=== PATIENT | male | born 1955 | race Hispanic/Latino ===

== ENCOUNTER 2019-08-24 12:52 | Outpatient (CLI) | payer OTHER ==
--- NOTE | 2019-08-24 13:23 | ULT ---
US Carotid Doppler STANDARD History: Transient ischemic attack Comparison: None. Findings: Real-time grayscale, color and spectral analysis of the extracranial carotid and vertebral arteries was performed. Antegrade flow both vertebral arteries. No elevated peak systolic velocities within the internal martinez tid arteries. Minimal atherosclerotic plaque. Impression: No hemodynamically significant stenosis.
== END 2019-08-24 12:53 | disposition home or self-care (01) ==
LOC: BICULT 12:52
PROVIDERS: ATTEND Psychiatry & Neurology Neurology
DX: G45.9 Transient cerebral ischemic attack, unspecified (principal)
CPT/HCPCS: 93880

== ENCOUNTER 2020-09-05 16:01 | Inpatient (IN) | payer OTHER ==
[~2020-09-05 16:01] MED LIST: Iopamidol-370 76% 500 ML 1 ML ONE
[2020-09-05] MEDS ORDERED: Acetaminophen 500 MG TAB ONE (17:35)
[2020-09-05] MEDS ORDERED: Aspirin 325 MG TAB ONE (18:11)
[2020-09-05 18:18] LABS: #Basophils 0.1 thou/uL (0.0-0.2); #Eosinphils 0.1 thou/uL (0.0-0.7); #Lymphocytes 2.4 thou/uL (1.20-3.40); #Monocytes 0.9 thou/uL (0.11-0.59); #Neutrophils 4.7 thou/uL (1.40-6.50); %Basophils 0.7 % (0.0-1.0); %Eosinophils 0.9 % (0.0-10.0); %Lymphocytes 29.5 % (21.0-51.0); %Monocytes 11.4 % (0.0-10.0); %Neutrophils 57.4 % (42.0-75.0); Hemoglobin 16.3 g/dL (14.0-18.0); Mean Corpuscular HGB CONC 33.9 g/dL (32.0-36.0); Mean Corpuscular Volume 88.5 fL (78.0-98.0); Mean Platelet Volume 10.2 fL (7.4-10.4); Platelet Count 208 thou/uL (130-400); RBC Distribution Width 11.8 % (11.5-14.5); Red Blood Cell (RBC) Count 5.42 mill/uL (4.70-6.10); White Blood Cell (WBC) Count 8.2 thou/uL (4.8-10.8)
[2020-09-05 18:46] LABS: ALT (SGPT) 97 U/L (8-55); AST (SGOT) 86 U/L (5-34); Alkaline Phosphatase 69 U/L (40-110); Anion Gap 14 mmol/L (10-20); BUN (Urea Nitrogen) 19 mg/dL (8.4-25.7); Bilirubin, Total 1.1 mg/dL (0.2-1.2); Calc. Creatinine Clearance 0 mL/min (70-130); Calcium 9.9 mg/dL (7.8-10.44); Carbon Dioxide 23 mmol/L (23-31); Chloride 104 mmol/L (98-107); Globulin 4.4 g/dL (2.4-3.5); Glucose 119 mg/dL (80-115); Magnesium 1.9 mg/dL (1.6-2.6); Potassium 4.2 mmol/L (3.5-5.1); Protein, Total 8.4 g/dL (5.8-8.1); Sodium 137 mmol/L (136-145)
[2020-09-05] MEDS ORDERED: Sodium Chloride 0.9% 1,000 ML IV SCH ×2 (21:15→21:48)
[2020-09-05] MEDS ORDERED: Acetaminophen 325 MG TAB PO PRN (21:15)
[2020-09-06 04:06] VITALS: BMI 24.2
[2020-09-06 05:15] LABS: Cardiac Risk 5.2 (Less than 4.5)
[2020-09-06] MEDS: Enoxaparin Sodium 40 MG/0.4 ML SYRINGE SC SCH (09:00)
[2020-09-06] MEDS: Aspirin 81 mg Enteric Coated Tablet PO SCH (09:00)
[2020-09-06] MEDS ORDERED: Magnevist 469MG/ML 20 ML VIAL ONE (10:40)
[2020-09-06] MEDS ORDERED: Atorvastatin Calcium 40 MG TAB PO SCH (21:00)
[2020-09-07] MEDS: Aspirin 81 mg Enteric Coated Tablet PO SCH (09:00)
[2020-09-07] MEDS: Enoxaparin Sodium 40 MG/0.4 ML SYRINGE SC SCH (09:00)
[2020-09-07 15:49] VITALS: BP 163/91; TEMP 98.3
== END 2020-09-07 16:30 | disposition home or self-care (01) | DRG 65 ==
LOC: ERS 16:01 → 2SE 19:40 → INTOOBSV 19:40 → OBSVTOIN 09-06 16:51
PROVIDERS: ADMIT Internal Medicine; ATTEND Family Medicine
DX: I63.511 Cerebral infarction due to unspecified occlusion or stenosis of right middle cerebral artery (principal); G81.92 Hemiplegia, unspecified affecting left dominant side; I10 Essential (primary) hypertension; F41.9 Anxiety disorder, unspecified; G47.00 Insomnia, unspecified; I65.21 Occlusion and stenosis of right carotid artery; M25.551 Pain in right hip; I65.01 Occlusion and stenosis of right vertebral artery; F17.210 Nicotine dependence, cigarettes, uncomplicated; F32.9 Major depressive disorder, single episode, unspecified; R29.701 NIHSS score 1; F10.10 Alcohol abuse, uncomplicated; Z79.899 Other long term (current) drug therapy
CPT/HCPCS: 36415; 70450; 70496; 70498; 70553; 71045; 72141; 72148; 80053; 80061; 83735; 84484; 85025; 93005; 93306; 96372; A9579; G0378; J1650; Q9967

== ENCOUNTER 2022-10-22 06:49 | Inpatient (IN) | payer MEDICARE, MEDICAID ==
[2022-10-22] MEDS ORDERED: Ondansetron PF 4 MG/2 ML Vial ONE (07:22)
[2022-10-22] MEDS ORDERED: Morphine 4 MG/ML VIAL ONE (07:22)
[2022-10-22] MEDS ORDERED: Nitroglycerin 2% Ointment 1 INCH/1 GM Packet ONE (07:22)
[2022-10-22 07:55] LABS: #Basophils 0.1 thou/uL (0.0-0.2); #Monocytes 0.7 thou/uL (0.11-0.59); #Neutrophils 4.7 thou/uL (1.40-6.50); %Basophils 0.7 % (0.0-1.0); %Eosinophils 0.4 % (0.0-10.0); %Lymphocytes 20.3 % (21.0-51.0); %Monocytes 10.5 % (0.0-10.0); %Neutrophils 67.7 % (42.0-75.0); Hematocrit 35.8 % (42.0-52.0); Hemoglobin 11.3 g/dL (14.0-18.0); Mean Corpuscular HGB CONC 31.6 g/dL (32.0-36.0); Mean Corpuscular Hemoglobin 23.8 pg (27.0-31.0); Mean Corpuscular Volume 75.4 fl (78.0-98.0); Platelet Count 194 10x3/uL (130-400); RBC Distribution Width 17.1 % (11.5-14.5); Red Blood Cell (RBC) Count 4.75 mill/uL (4.70-6.10); White Blood Cell (WBC) Count 6.9 10x3/uL (4.8-10.8)
[2022-10-22 08:17] LABS: ALT (SGPT) 132 U/L (8-55); AST (SGOT) 154 U/L (5-34); Albumin 4.3 g/dL (3.4-4.8); Alkaline Phosphatase 63 U/L (40-110); Anion Gap 13 mmol/L (10-20); BUN (Urea Nitrogen) 12 mg/dL (8.4-25.7); Bilirubin, Total 0.9 mg/dL (0.2-1.2); Calc. Creatinine Clearance 0 mL/min (70-130); Calcium 9.4 mg/dL (7.8-10.44); Carbon Dioxide 26 mmol/L (23-31); Chloride 96 mmol/L (98-107); Estimated GFR 73; Globulin 3.6 g/dL (2.4-3.5); Glucose 174 mg/dL (80-115); Lipase 46 U/L (8-78); Potassium 4.2 mmol/L (3.5-5.1); Protein, Total 7.9 g/dL (5.8-8.1); Sodium 131 mmol/L (136-145)
[2022-10-22 08:28] LABS: Troponin I 0.012 ng/mL (< 0.028)
[2022-10-22] MEDS ORDERED: Ondansetron ODT 4 MG TAB PO PRN (10:56)
[2022-10-22] MEDS ORDERED: Acetaminophen 325 MG TAB PO PRN ×2 (10:56→11:00)
[2022-10-22] MEDS ORDERED: Ondansetron ODT 4 MG TAB SL PRN (11:00)
[2022-10-22] MEDS ORDERED: Ondansetron PF 4 MG/2 ML Vial IVP PRN (11:00)
[2022-10-22] MEDS ORDERED: Amlodipine 10 MG TAB PO SCH (11:00)
[2022-10-22] MEDS ORDERED: Dextrose 5% in Water 1,000 ML IV PRN (11:06)
[2022-10-22] MEDS ORDERED: Dextrose 50% Abboject 50 ML SYRINGE SLOW IVP PRN (11:06)
[2022-10-22] MEDS ORDERED: Insulin Regular 300 UNITS/3 ML VIAL SC PRN (11:06)
[2022-10-22] MEDS ORDERED: Glucagon 1 MG/ML KIT IM PRN (11:06)
[2022-10-22 11:20] LABS: CellaVision Operator ID LAB.GE; Microcytosis SLIGHT = 6-15 cells HPF (0-5); Platelet Adequacy Comment Platelets Normal; Polychromasia SLIGHT = 2-3 cells HPF (0-2)
[2022-10-22 11:46] LABS: Hemoglobin A1c 6.3 % (4.0-6.0)
[2022-10-22 11:57] LABS: Iron 50 ug/dL (65-175); Iron Binding Capacity, Total 574 mcg/dL (261-462)
[2022-10-22 12:03] LABS: Troponin I 0.026 ng/mL (< 0.028)
[2022-10-22 12:24] LABS: Ferritin 16.59 ng/mL (22-322)
[2022-10-22] MEDS ORDERED: Aspirin Chewable 81 MG TAB PO SCH (12:45)
[2022-10-22 14:44] VITALS: BMI 25.1
[2022-10-22 15:00] LABS: Troponin I 0.015 ng/mL (< 0.028)
[2022-10-22] MEDS: Ferrous Sulfate 325 MG TAB PO SCH (16:48)
[2022-10-22] MEDS: Nitroglycerin 2% Ointment 1 INCH/1 GM Packet TOP SCH ×2 (16:51→22:59)
[2022-10-22] MEDS: Famotidine 20 MG TAB PO SCH (20:16)
[2022-10-22] MEDS: Atorvastatin Calcium 40 MG TAB PO SCH (20:16)
[2022-10-23 04:50] LABS: Cardiac Risk 3.6 (Less than 4.5)
[2022-10-23] MEDS ORDERED: ADENOSINE 60 MG/20 ML SDV ONE (08:45)
[2022-10-23] MEDS: Nitroglycerin 2% Ointment 1 INCH/1 GM Packet TOP SCH ×2 (09:33→16:39)
[2022-10-23] MEDS: Aspirin Chewable 81 MG TAB PO SCH (09:34)
[2022-10-23] MEDS: Amlodipine 10 MG TAB PO SCH (09:34)
[2022-10-23] MEDS: Ferrous Sulfate 325 MG TAB PO SCH ×2 (09:34→16:39)
[2022-10-23] MEDS: Famotidine 20 MG TAB PO SCH (09:34)
[2022-10-23] MEDS: Atorvastatin Calcium 40 MG TAB PO SCH (20:10)
[2022-10-24] MEDS: Nitroglycerin 2% Ointment 1 INCH/1 GM Packet TOP SCH ×5 (00:17→23:58)
[2022-10-24 06:09] LABS: Hematocrit 33.6 % (42.0-52.0); Hemoglobin 10.3 g/dL (14.0-18.0); Mean Corpuscular HGB CONC 30.7 g/dL (32.0-36.0); Mean Corpuscular Hemoglobin 23.6 pg (27.0-31.0); Mean Corpuscular Volume 77.1 fl (78.0-98.0); Platelet Count 160 10x3/uL (130-400); RBC Distribution Width 16.9 % (11.5-14.5); Red Blood Cell (RBC) Count 4.36 mill/uL (4.70-6.10); White Blood Cell (WBC) Count 5.5 10x3/uL (4.8-10.8)
[2022-10-24 06:29] LABS: ALT (SGPT) 118 U/L (8-55); AST (SGOT) 123 U/L (5-34); Albumin 3.9 g/dL (3.4-4.8); Alkaline Phosphatase 57 U/L (40-110); Anion Gap 10 mmol/L (10-20); BUN (Urea Nitrogen) 20 mg/dL (8.4-25.7); Bilirubin, Direct 0.3 mg/dL (0.1-0.3); Bilirubin, Total 0.5 mg/dL (0.2-1.2); Calc. Creatinine Clearance 61 mL/min (70-130); Calcium 9.3 mg/dL (7.8-10.44); Carbon Dioxide 28 mmol/L (23-31); Chloride 103 mmol/L (98-107); Estimated GFR 57; Glucose 125 mg/dL (80-115); Potassium 4.1 mmol/L (3.5-5.1); Protein, Total 7.2 g/dL (5.8-8.1); Sodium 137 mmol/L (136-145)
[2022-10-24] MEDS: Amlodipine 10 MG TAB PO SCH (08:30)
[2022-10-24] MEDS: Aspirin Chewable 81 MG TAB PO SCH (08:30)
[2022-10-24] MEDS: Ferrous Sulfate 325 MG TAB PO SCH ×2 (08:30→17:13)
[2022-10-24] MEDS: Atorvastatin Calcium 40 MG TAB PO SCH (21:09)
[2022-10-25 05:18] LABS: #Eosinphils 0.2 thou/uL (0.0-0.7); #Monocytes 0.8 thou/uL (0.11-0.59); #Neutrophils 2.3 thou/uL (1.40-6.50); %Basophils 0.7 % (0.0-1.0); %Eosinophils 4.1 % (0.0-10.0); %Lymphocytes 40.4 % (21.0-51.0); %Monocytes 13.8 % (0.0-10.0); %Neutrophils 40.8 % (42.0-75.0); Hematocrit 34.6 % (42.0-52.0); Hemoglobin 10.7 g/dL (14.0-18.0); Mean Corpuscular HGB CONC 30.9 g/dL (32.0-36.0); Mean Corpuscular Hemoglobin 24.1 pg (27.0-31.0); Mean Corpuscular Volume 77.9 fl (78.0-98.0); Mean Platelet Volume 13.1 fL (7.4-10.4); Platelet Count 168 10x3/uL (130-400); RBC Distribution Width 17.1 % (11.5-14.5); Red Blood Cell (RBC) Count 4.44 mill/uL (4.70-6.10); White Blood Cell (WBC) Count 5.6 10x3/uL (4.8-10.8)
[2022-10-25 05:36] LABS: Anion Gap 14 mmol/L (10-20); BUN (Urea Nitrogen) 20 mg/dL (8.4-25.7); Calc. Creatinine Clearance 60 mL/min (70-130); Calcium 9.8 mg/dL (7.8-10.44); Carbon Dioxide 27 mmol/L (23-31); Chloride 101 mmol/L (98-107); Estimated GFR 56; Glucose 130 mg/dL (80-115); Potassium 4.7 mmol/L (3.5-5.1); Sodium 137 mmol/L (136-145)
[2022-10-25] MEDS: Amlodipine 10 MG TAB PO SCH (08:42)
[2022-10-25] MEDS: Nitroglycerin 2% Ointment 1 INCH/1 GM Packet TOP SCH ×3 (08:43→20:58)
[2022-10-25] MEDS: Aspirin Chewable 81 MG TAB PO SCH (08:43)
[2022-10-25] MEDS: Ferrous Sulfate 325 MG TAB PO SCH ×2 (08:43→17:32)
[2022-10-25] MEDS ORDERED: Communication Order-Pharmacy FS SCH (13:00)
[2022-10-25] MEDS: Sodium Chloride 0.9% 1,000 ML IV SCH (18:08)
[2022-10-25] MEDS: Atorvastatin Calcium 40 MG TAB PO SCH (20:58)
[2022-10-26] MEDS: Nitroglycerin 2% Ointment 1 INCH/1 GM Packet TOP SCH ×3 (05:10→20:40)
[2022-10-26] MEDS: Sodium Chloride 0.9% 1,000 ML IV SCH ×2 (05:11→11:48)
[2022-10-26] MEDS: Ferrous Sulfate 325 MG TAB PO SCH ×2 (05:27→18:07)
[2022-10-26] MEDS: Amlodipine 10 MG TAB PO SCH (05:27)
[2022-10-26] MEDS: Aspirin Chewable 81 MG TAB PO SCH (05:27)
[2022-10-26 05:35] LABS: #Basophils 0.1 thou/uL (0.0-0.2); #Eosinphils 0.2 thou/uL (0.0-0.7); #Monocytes 0.8 thou/uL (0.11-0.59); #Neutrophils 2.3 thou/uL (1.40-6.50); %Basophils 1.1 % (0.0-1.0); %Eosinophils 4.1 % (0.0-10.0); %Monocytes 14.1 % (0.0-10.0); %Neutrophils 41.5 % (42.0-75.0); Hematocrit 34.5 % (42.0-52.0); Hemoglobin 10.6 g/dL (14.0-18.0); Mean Corpuscular HGB CONC 30.7 g/dL (32.0-36.0); Mean Corpuscular Volume 78.1 fl (78.0-98.0); Platelet Count 173 10x3/uL (130-400); RBC Distribution Width 17.2 % (11.5-14.5); Red Blood Cell (RBC) Count 4.42 mill/uL (4.70-6.10); White Blood Cell (WBC) Count 5.6 10x3/uL (4.8-10.8)
[2022-10-26 05:59] LABS: Anion Gap 14 mmol/L (10-20); BUN (Urea Nitrogen) 18 mg/dL (8.4-25.7); Calc. Creatinine Clearance 62 mL/min (70-130); Calcium 9.8 mg/dL (7.8-10.44); Carbon Dioxide 25 mmol/L (23-31); Chloride 103 mmol/L (98-107); Estimated GFR 57; Glucose 121 mg/dL (80-115); Potassium 4.1 mmol/L (3.5-5.1); Sodium 138 mmol/L (136-145)
[2022-10-26] MEDS ORDERED: Iopamidol 370 76% 100 ML VIAL ONE (10:19)
[2022-10-26] MEDS ORDERED: Lidocaine 1% (PF) 30 ML VIAL ONE (11:58)
[2022-10-26] MEDS ORDERED: fentaNYL 50 mcg/mL 1 mL Vial ONE (12:40)
[2022-10-26] MEDS ORDERED: Midazolam HCl 2 mg/2 ml Vial ONE (12:41)
[2022-10-26] MEDS ORDERED: Adenosine 6 MG/2 ML VIAL ONE (12:41)
[2022-10-26] MEDS ORDERED: Heparin 10,000 UNITS/ 10 ML VIAL ONE (12:41)
[2022-10-26] MEDS ORDERED: Nitroglycerin 50 MG/250 ML BOT 0 ML ONE (12:41)
[2022-10-26] MEDS ORDERED: Sodium Chloride 0.9% 200 ML IV PRN (14:05)
[2022-10-26] MEDS ORDERED: Acetaminophen/Codeine 30-300mg Tablet PO PRN ×2 (14:05)
[2022-10-26] MEDS ORDERED: Nitroglycerin 0.4 MG TAB (25 Tab Bottle) SL PRN (14:05)
[2022-10-26] MEDS: Atorvastatin Calcium 40 MG TAB PO SCH (20:40)
[2022-10-27 05:25] LABS: #Basophils 0.1 thou/uL (0.0-0.2); #Eosinphils 0.3 thou/uL (0.0-0.7); #Monocytes 0.7 thou/uL (0.11-0.59); #Neutrophils 2.4 thou/uL (1.40-6.50); %Basophils 0.9 % (0.0-1.0); %Eosinophils 5.3 % (0.0-10.0); %Lymphocytes 36.6 % (21.0-51.0); %Monocytes 13.2 % (0.0-10.0); Hematocrit 34.4 % (42.0-52.0); Hemoglobin 10.6 g/dL (14.0-18.0); Mean Corpuscular HGB CONC 30.8 g/dL (32.0-36.0); Mean Corpuscular Hemoglobin 23.9 pg (27.0-31.0); Mean Corpuscular Volume 77.7 fl (78.0-98.0); Platelet Count 158 10x3/uL (130-400); RBC Distribution Width 17.3 % (11.5-14.5); Red Blood Cell (RBC) Count 4.43 mill/uL (4.70-6.10); White Blood Cell (WBC) Count 5.4 10x3/uL (4.8-10.8)
[2022-10-27 05:50] LABS: Anion Gap 12 mmol/L (10-20); BUN (Urea Nitrogen) 18 mg/dL (8.4-25.7); Calc. Creatinine Clearance 69 mL/min (70-130); Calcium 9.5 mg/dL (7.8-10.44); Carbon Dioxide 27 mmol/L (23-31); Chloride 101 mmol/L (98-107); Estimated GFR 65; Glucose 125 mg/dL (80-115); Potassium 4.4 mmol/L (3.5-5.1); Sodium 136 mmol/L (136-145)
[2022-10-27] MEDS ORDERED: Isosorbide Mononitrate 30 MG ER.TAB PO SCH (09:00)
[2022-10-27] MEDS ORDERED: Clopidogrel Bisulfate 75 MG TAB PO SCH (09:00)
[2022-10-27] MEDS: Ferrous Sulfate 325 MG TAB PO SCH (10:37)
[2022-10-27] MEDS: Amlodipine 10 MG TAB PO SCH (10:37)
[2022-10-27] MEDS: Aspirin Chewable 81 MG TAB PO SCH (10:38)
[2022-10-27 11:40] VITALS: BP 132/74; TEMP 97.7
== END 2022-10-27 15:02 | disposition home or self-care (01) | DRG 287 ==
LOC: ERS 06:49 → ERHOLD 10:49 → 2SW 14:43 → OBSVTOIN 10-23 13:41
PROVIDERS: ADMIT Internal Medicine; ATTEND Internal Medicine
PROC: 4A023N7 Measurement of Cardiac Sampling and Pressure, Left Heart, Percutaneous Approach (ICD-10-PCS; principal; 2022-10-26)
PROC: B2151ZZ Fluoroscopy of Left Heart using Low Osmolar Contrast (ICD-10-PCS; 2022-10-26)
PROC: B2111ZZ Fluoroscopy of Multiple Coronary Arteries using Low Osmolar Contrast (ICD-10-PCS; 2022-10-26)
DX: I25.110 Atherosclerotic heart disease of native coronary artery with unstable angina pectoris (principal); E87.1 Hypo-osmolality and hyponatremia; I69.354 Hemiplegia and hemiparesis following cerebral infarction affecting left non-dominant side; N18.2 Chronic kidney disease, stage 2 (mild); E61.1 Iron deficiency; R74.01 Elevation of levels of liver transaminase levels; R29.898 Other symptoms and signs involving the musculoskeletal system; R20.2 Paresthesia of skin; E78.5 Hyperlipidemia, unspecified; M19.90 Unspecified osteoarthritis, unspecified site; F10.90 Alcohol use, unspecified, uncomplicated; D64.9 Anemia, unspecified; F19.10 Other psychoactive substance abuse, uncomplicated; Z71.6 Tobacco abuse counseling; Z79.899 Other long term (current) drug therapy; Z79.82 Long term (current) use of aspirin; Z89.112 Acquired absence of left hand; Z82.49 Family history of ischemic heart disease and other diseases of the circulatory system; F17.210 Nicotine dependence, cigarettes, uncomplicated; R73.03 Prediabetes; K40.90 Unilateral inguinal hernia, without obstruction or gangrene, not specified as recurrent; I73.9 Peripheral vascular disease, unspecified
CPT/HCPCS: 36415; 36416; 71045; 78452; 80048; 80053; 80061; 80076; 82607; 82728; 83036; 83540; 83550; 83690; 84484; 85025; 85027; 93005; 93017; 93306; 93458; 94760; 96372; 96374; 96375; 99152; 99153; A9500; C1769; G0378; J0153; J1644; J1650; J2001; J2250; J2270; J2405; J3010; J7050

== ENCOUNTER 2022-11-20 13:25 | Emergency (ER) | payer MEDICARE, MEDICAID ==
[2022-11-20 13:56] LABS: #Basophils 0.1 thou/uL (0.0-0.2); #Monocytes 0.6 thou/uL (0.11-0.59); #Neutrophils 9.8 thou/uL (1.40-6.50); %Basophils 0.6 % (0.0-1.0); %Eosinophils 0.2 % (0.0-10.0); %Lymphocytes 10.2 % (21.0-51.0); %Monocytes 4.8 % (0.0-10.0); %Neutrophils 83.7 % (42.0-75.0); Hematocrit 38.8 % (42.0-52.0); Hemoglobin 12.3 g/dL (14.0-18.0); Mean Corpuscular HGB CONC 31.7 g/dL (32.0-36.0); Mean Corpuscular Hemoglobin 24.7 pg (27.0-31.0); Mean Corpuscular Volume 77.9 fl (78.0-98.0); Platelet Count 198 10x3/uL (130-400); RBC Distribution Width 17.1 % (11.5-14.5); Red Blood Cell (RBC) Count 4.98 mill/uL (4.70-6.10); White Blood Cell (WBC) Count 11.7 10x3/uL (4.8-10.8)
[2022-11-20 14:19] LABS: Acetaminophen Less than 10 mcg/mL (10.0-30.0); Alcohol Less than 10.0 mg/dL (Less than 10); Lipase 55 U/L (8-78); Salicylate Less than 8.0 mg/dL (15.0-30.0)
[2022-11-20 14:21] LABS: ALT (SGPT) 115 U/L (8-55); AST (SGOT) 92 U/L (5-34); Alkaline Phosphatase 67 U/L (40-110); Anion Gap 17 mmol/L (10-20); BUN (Urea Nitrogen) 13 mg/dL (8.4-25.7); Bilirubin, Total 0.5 mg/dL (0.2-1.2); Calc. Creatinine Clearance 0 mL/min (70-130); Calcium 10.5 mg/dL (7.8-10.44); Carbon Dioxide 24 mmol/L (23-31); Chloride 99 mmol/L (98-107); Estimated GFR 59; Globulin 3.6 g/dL (2.4-3.5); Glucose 223 mg/dL (80-115); Protein, Total 8.6 g/dL (5.8-8.1); Sodium 136 mmol/L (136-145)
[2022-11-20 14:30] LABS: Troponin I Less than 0.010 ng/mL (< 0.028)
[2022-11-20] MEDS ORDERED: Morphine 4 MG/ML VIAL ONE (14:37)
[2022-11-20] MEDS ORDERED: Ondansetron PF 4 MG/2 ML Vial ONE (14:37)
[2022-11-20 15:46] LABS: Bacteria/HPF None Seen HPF (None Seen); Bilirubin Negative (Negative); Blood, Urine Negative (Negative); CAUTI Indications for Culture Dysuria,urgency,freq; Clarity Clear (Clear); Glucose, Urine (Dipstick) Normal (Negative); Ketone, Urine Negative (Negative); Leukocyte Negative Leu/uL (Negative); Nitrite Negative (Negative); Protein, Urine (Dipstick) Negative (Neg-Trace); RBC/HPF 0-3 HPF (0-3); Specific Gravity, Urine 1.014 (1.002-1.036); Squamous Epithelial None Seen HPF (0-3); Urobilinogen Normal mg/dL (Less than 2); WBC/HPF 0-3 HPF (0-3)
[2022-11-20 15:49] LABS: Urine Culture Reflex No No
[2022-11-20 15:53] LABS: Amphetamine Not Detected (NotDetected); Barbiturates Screen Not Detected (NotDetected); Benzodiazepine Screen Not Detected (NotDetected); Cocaine Metabolite Screen Not Detected (NotDetected); Methadone Not Detected (NotDetected); Methamphetamine Not Detected (NotDetected); Opiate Screen Detected (NotDetected); Oxycodone Screen Not Detected (NotDetected); Phencyclidine (PCP) Not Detected (NotDetected); THC/Cannabinoid Screen Not Detected (NotDetected); Tricyclic Screen Not Detected (NotDetected)
== END 2022-11-20 16:31 | disposition home or self-care (01) ==
LOC: ERS 13:25
DX: K80.50 Calculus of bile duct without cholangitis or cholecystitis without obstruction (principal); I10 Essential (primary) hypertension; F17.210 Nicotine dependence, cigarettes, uncomplicated; Z79.82 Long term (current) use of aspirin
CPT/HCPCS: 71045; 76705; 80053; 80306; 80307; 81001; 83690; 84484; 85025; 93005; 96374; 96375; J2270; J2405

== ENCOUNTER 2023-04-13 10:52 | Inpatient (IN) | payer OTHER, MEDICAID ==
[2023-04-13] MEDS ORDERED: Morphine 4 MG/ML VIAL ONE ×2 (11:07→13:03)
[2023-04-13] MEDS ORDERED: Sucralfate 1 GM/10 ML UDCUP ONE (11:07)
[2023-04-13] MEDS ORDERED: Ondansetron PF 4 MG/2 ML Vial ONE ×2 (11:08→15:11)
[2023-04-13] MEDS ORDERED: Pantoprazole 40 MG VIAL ONE (11:08)
[2023-04-13 11:28] LABS: #Basophils 0.1 thou/uL (0.0-0.2); #Monocytes 0.9 thou/uL (0.11-0.59); #Neutrophils 10.5 thou/uL (1.40-6.50); %Basophils 0.4 % (0.0-1.0); %Eosinophils 0.1 % (0.0-10.0); %Lymphocytes 12.3 % (21.0-51.0); %Monocytes 6.8 % (0.0-10.0); %Neutrophils 80.2 % (42.0-75.0); Hematocrit 35.3 % (42.0-52.0); Hemoglobin 11.4 g/dL (14.0-18.0); Mean Corpuscular HGB CONC 32.3 g/dL (32.0-36.0); Mean Corpuscular Volume 74.3 fl (78.0-98.0); Platelet Count 214 10x3/uL (130-400); Red Blood Cell (RBC) Count 4.75 mill/uL (4.70-6.10)
[2023-04-13 11:50] LABS: PTT 26.3 sec (22.9-36.1)
[2023-04-13 11:53] LABS: ALT (SGPT) 86 U/L (8-55); AST (SGOT) 72 U/L (5-34); Alkaline Phosphatase 64 U/L (40-110); Anion Gap 17 mmol/L (10-20); BUN (Urea Nitrogen) 13 mg/dL (8.4-25.7); Calc. Creatinine Clearance 0 mL/min (70-130); Calcium 8.4 mg/dL (7.8-10.44); Carbon Dioxide 24 mmol/L (23-31); Chloride 98 mmol/L (98-107); Estimated GFR 60; Globulin 3.6 g/dL (2.4-3.5); Glucose 248 mg/dL (80-115); Potassium 3.7 mmol/L (3.5-5.1); Protein, Total 7.6 g/dL (5.8-8.1); Sodium 135 mmol/L (136-145)
[2023-04-13 11:57] LABS: Anisocytosis MARKED = >30 cells HPF (0-5); CellaVision Operator ID LAB.KW3; Platelet Adequacy Comment Platelets Normal; Polychromasia SLIGHT = 2-3 cells HPF (0-2); Troponin I 0.025 ng/mL (< 0.028)
[2023-04-13] MEDS ORDERED: Piperacillin/Tazobactam 3.375 GM VIAL ONE (12:41)
[2023-04-13] MEDS ORDERED: Sodium Chloride 0.9% 100 ML ONE (12:42)
[2023-04-13] MEDS ORDERED: Ipratropium/Albuterol 3 ML NEB NEB PRN (14:32)
[2023-04-13] MEDS ORDERED: hydrALAZINE 20 MG/ML VIAL SLOW IVP PRN (14:32)
[2023-04-13] MEDS ORDERED: Ondansetron PF 4 MG/2 ML Vial IVP PRN (14:32)
[2023-04-13] MEDS ORDERED: fentaNYL PF 100 MCG/2 ML SYRINGE ONE (15:06)
[2023-04-13 15:07] VITALS: BMI 25.1
[2023-04-13] MEDS ORDERED: PROPOFOL 20 ML ONE (15:10)
[2023-04-13] MEDS ORDERED: Lidocaine 1% PF 5 ML VIAL ONE (15:11)
[2023-04-13] MEDS ORDERED: Rocuronium Bromide 10 MG/ML (10ML VIAL) ONE (15:11)
[2023-04-13] MEDS ORDERED: Dexamethasone 4 mg/ml Vial ONE (15:11)
[2023-04-13] MEDS ORDERED: EPINEPHrine 1 MG/ML VIAL ONE (15:11)
[2023-04-13] MEDS ORDERED: Bupivacaine 0.25% HCL 30 ML VIAL ONE (15:12)
[2023-04-13] MEDS: Lactated Ringer's 1,000 ML IV SCH (15:48)
[2023-04-13] MEDS ORDERED: SUGAMMADEX SODIUM 200 MG/2 ML VIAL ONE (15:58)
[2023-04-13] MEDS ORDERED: Promethazine HCl 25 MG/ML VIAL IM PRN (15:59)
[2023-04-13] MEDS ORDERED: Ondansetron HCl/PF 4 MG/2 ML Vial IVP PRN (15:59)
[2023-04-13] MEDS: Piperacillin/Tazobactam 3.375 GM in Sodium Chloride 0.9% 100 ML IVPB SCH (17:18)
[2023-04-13] MEDS: HYDROcodone/Acetaminophen 10/325 mg Tablet PO PRN (17:51)
[2023-04-13] MEDS: Atorvastatin Calcium 40 MG TAB PO SCH (20:07)
[2023-04-13] MEDS: Famotidine/PF 20 mg/2ml Vial SLOW IVP SCH (20:07)
[2023-04-13] MEDS: Morphine 2 MG/ML VIAL SLOW IVP PRN (22:47)
[2023-04-14 07:22] LABS: #Monocytes 0.7 thou/uL (0.11-0.59); %Basophils 0.1 % (0.0-1.0); %Lymphocytes 10.1 % (21.0-51.0); %Monocytes 6.4 % (0.0-10.0); Hematocrit 33.4 % (42.0-52.0); Hemoglobin 10.3 g/dL (14.0-18.0); Mean Corpuscular HGB CONC 30.8 g/dL (32.0-36.0); Mean Corpuscular Hemoglobin 23.5 pg (27.0-31.0); Mean Corpuscular Volume 76.1 fl (78.0-98.0); Platelet Count 177 10x3/uL (130-400); RBC Distribution Width 17.1 % (11.5-14.5); Red Blood Cell (RBC) Count 4.39 mill/uL (4.70-6.10); White Blood Cell (WBC) Count 10.9 10x3/uL (4.8-10.8)
[2023-04-14 08:03] LABS: ALT (SGPT) 66 U/L (8-55); AST (SGOT) 56 U/L (5-34); Albumin 3.7 g/dL (3.4-4.8); Alkaline Phosphatase 54 U/L (40-110); Anion Gap 12 mmol/L (10-20); BUN (Urea Nitrogen) 10 mg/dL (8.4-25.7); Bilirubin, Total 1.4 mg/dL (0.2-1.2); Calc. Creatinine Clearance 73 mL/min (70-130); Calcium 8.3 mg/dL (7.8-10.44); Carbon Dioxide 26 mmol/L (23-31); Chloride 103 mmol/L (98-107); Estimated GFR 70; Globulin 3.1 g/dL (2.4-3.5); Glucose 181 mg/dL (80-115); Potassium 4.1 mmol/L (3.5-5.1); Protein, Total 6.8 g/dL (5.8-8.1); Sodium 137 mmol/L (136-145)
[2023-04-14] MEDS: Aspirin 81 mg Enteric Coated Tablet PO SCH (08:28)
[2023-04-14] MEDS: Calcium Carbonate 600 MG TAB PO SCH (08:28)
[2023-04-14] MEDS: Amlodipine 10 MG TAB PO SCH (08:28)
[2023-04-14] MEDS: Cholecalciferol (Vitamin D3) 400 UNITS TAB PO SCH (08:28)
[2023-04-14 08:37] VITALS: TEMP 98.2
[2023-04-14 12:30] VITALS: BP 129/76
== END 2023-04-14 15:45 | disposition home or self-care (01) | DRG 419 ==
LOC: ERS 10:52 → OBSVTOIN 13:29 → T4-A 13:29
PROVIDERS: ADMIT Surgery; ATTEND Surgery
PROC: 0FT44ZZ Resection of Gallbladder, Percutaneous Endoscopic Approach (ICD-10-PCS; principal; 2023-04-13)
PROC: 3E033XZ Introduction of Vasopressor into Peripheral Vein, Percutaneous Approach (ICD-10-PCS; 2023-04-13)
DX: K81.0 Acute cholecystitis (principal); I10 Essential (primary) hypertension; I25.10 Atherosclerotic heart disease of native coronary artery without angina pectoris; E78.00 Pure hypercholesterolemia, unspecified; F17.210 Nicotine dependence, cigarettes, uncomplicated; M19.90 Unspecified osteoarthritis, unspecified site; Z86.73 Personal history of transient ischemic attack (TIA), and cerebral infarction without residual deficits; Z89.022 Acquired absence of left finger(s)
CPT/HCPCS: 36415; 71045; 74177; 76705; 80053; 83690; 84484; 85025; 85610; 85730; 86850; 86900; 86901; 88304; 93005; 96365; 96375; 96376; C1713; C9113; J0171; J0665; J1100; J2270; J2272; J2405; J2543; J2704; J3490; J7120; S0028

== ENCOUNTER 2023-08-15 14:13 | Emergency (ER) | payer OTHER ==
[~2023-08-15 14:13] MED LIST changes: -Iopamidol-370 76% 500 ML 1 ML ONE; +Iopamidol-370 76% 500 ML MDV (1 ML CHARGE) ONE
[2023-08-15 15:58] LABS: #Basophils 0.09 10x3/uL (0.0-0.2); %Basophils 1.4 % (0.0-1.0); %Eosinophils 2.4 % (0.0-10.0); %Lymphocytes 47.5 % (21.0-51.0); %Neutrophils 38.4 % (42.0-75.0); Hematocrit 36.4 % (42.0-52.0); Hemoglobin 11.6 g/dL (14.0-18.0); Mean Corpuscular HGB CONC 31.9 g/dL (32.0-36.0); Mean Corpuscular Hemoglobin 22.9 pg (27.0-31.0); Mean Corpuscular Volume 71.8 fL (78.0-98.0); Platelet Count 186 10x3/uL (130-400); RBC Distribution Width 16.3 % (11.5-14.5); Red Blood Cell (RBC) Count 5.07 mill/uL (4.70-6.10)
[2023-08-15 16:00] LABS: ALT (SGPT) 107 U/L (8-55); AST (SGOT) 108 U/L (5-34); Albumin 3.7 g/dL (3.4-4.8); Alkaline Phosphatase 56 U/L (40-110); Anion Gap 15 mmol/L (10-20); BUN (Urea Nitrogen) 11 mg/dL (8.4-25.7); Bilirubin, Total 0.7 mg/dL (0.2-1.2); Calc. Creatinine Clearance 0 mL/min (70-130); Calcium 9.6 mg/dL (7.8-10.44); Carbon Dioxide 22 mmol/L (23-31); Chloride 99 mmol/L (98-107); Estimated GFR 76; Globulin 3.6 g/dL (2.4-3.5); Glucose 128 mg/dL (80-115); Lipase 36 U/L (8-78); Magnesium 1.6 mg/dL (1.6-2.6); Potassium 4.2 mmol/L (3.5-5.1); Protein, Total 7.3 g/dL (5.8-8.1); Sodium 132 mmol/L (136-145)
[2023-08-15 16:03] LABS: Troponin I 0.011 ng/mL (< 0.028)
[2023-08-15 16:14] LABS: PTT 27.5 sec (22.9-36.1); Prothrombin Time 13.5 sec (12.0-14.7)
== END 2023-08-15 18:41 | disposition home or self-care (01) ==
LOC: ERS 14:13
DX: R06.02 Shortness of breath (principal); I10 Essential (primary) hypertension; F17.210 Nicotine dependence, cigarettes, uncomplicated; Z86.73 Personal history of transient ischemic attack (TIA), and cerebral infarction without residual deficits; Z79.82 Long term (current) use of aspirin; Z79.899 Other long term (current) drug therapy
CPT/HCPCS: 71275; 74177; 80053; 83690; 83735; 83880; 84484; 85025; 85610; 85730; 93005; Q9967; 36415

== ENCOUNTER 2023-11-01 13:47 | Outpatient (CLI) | payer OTHER | END 2023-11-01 13:48 | disposition home or self-care (01) | PROVIDERS: ATTEND Nurse Practitioner Family | DX: R20.2 Paresthesia of skin (principal); Z86.73 Personal history of transient ischemic attack (TIA), and cerebral infarction without residual deficits ==